=== PATIENT | female | born 1995 | race Caucasian/White ===

== ENCOUNTER 2017-03-29 00:15 | Inpatient (IN) | payer OTHER, MEDICAID ==
[~2017-03-29 00:15] MED LIST: Acetaminophen 325 MG Tab PO PRN; Carboprost Tromethamine 250 MCG/1 ML Amp IM PRN; Lactated Ringers 500 ML IV ONE; Lidocaine 1% 30 ML SDV INJECT PRN; Methylergonovine 0.2 MG/1 ML Amp IM PRN; Misoprostol 400 MCG (4 X 100 MCG TAB) RECTAL PRN; Nalbuphine 10 MG/1 ML Vial IM PRN; Sodium Chloride 0.9% 10 ML Syringe FLUSH PRN; fentaNYL 100 MCG/2 ML SDV IVPUSH PRN
[2017-03-29] MEDS ORDERED: Misoprostol 25 MCG (1/4 of 100 MCG) Tab VAG PRN (00:18)
[2017-03-29] MEDS ORDERED: Lactated Ringers 1,000 ML IV SCH (00:30)
[2017-03-29] MEDS: Lactated Ringers 1,000 ML IV SCH ×4 (00:50→16:45)
[2017-03-29] MEDS ORDERED: Oxytocin/Normal Saline 30 UNIT/500 ML BAG IV SCH (09:00)
[2017-03-29] MEDS: Nalbuphine 10 MG/1 ML Vial IM PRN ×2 (09:21→13:09)
--- NOTE | 2017-03-29 14:36 | PCM.LDHP ---
L&D History of Present Illness - General Date of Service: 03/29/17 Admit Problem/Dx: Patient Status Order with Admit Dx/Problem 03/29/17 00:14 Patient Status [ADT] Routine Admission Diagnosis/Problem Admission Diagnosis/Problem care Source of Information: Patient History Limitations: Reports: No Limitations - History of Present Illness Introduction:: 22-year-old at 41 weeks 2 days presents for induction of labor due to postdates . She has been feeling well. Baby has been active. She is having intermittent Jesus Granado contractions but nothing regular. No vaginal bleeding or discharge. No new headaches or vision changes. No other concerns today. 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: Hematologic History: Reports: Anemia - Past Surgical History HEENT Surgical History: Reports: Oral Surgery GI Surgical History: Reports: Colonoscopy, EGD Social & Family History - Family History : Reports: Renal Disease/Insufficiency - Tobacco Use Smoking Status *Q: Never Smoker Second Hand Smoke Exposure: No - Recreational Drug Use Recreational Drug Use: No H&P Review of Systems - Review of Systems: Review Of Systems: See Below General: Reports: No Symptoms HEENT: Reports: No Symptoms Pulmonary: Reports: No Symptoms Cardiovascular: Reports: No Symptoms Gastrointestinal: Reports: No Symptoms Genitourinary: Reports: No Symptoms Musculoskeletal: Reports: No Symptoms Skin: Reports: No Symptoms Psychiatric: Reports: No Symptoms Neurological: Reports: No Symptoms Hematologic/Lymphatic: Reports: No Symptoms Immunologic: Reports: No Symptoms L&D Exam - Exam Exam: See Below - Vital Signs Vital Signs: Last Vital Signs Temp 36.4 C 03/29/17 09:30 Pulse 81 03/29/17 09:30 Resp 20 03/29/17 09:30 BP 110/62 03/29/17 09:30 Pulse Ox Weight: 59.874 kg - OB Specific Contraction Duration (sec): 60-80 Contraction Frequency (min): 1-3 Contraction Intensity: Strong Heart Tones per Min: 135 Heart Rate (FHR) Variability: Moderate (6-25 bmp) Presentation: Vertex - Chan Score Chan Score Cervix Position: Posterior Chan Score Consistency: Medium Chan Score Effacement: 51-70% Chan Score Dilation: Closed Chan Score 's Station: -2 Chan Score Total: 4 - Exam General: Alert, Oriented HEENT: Conjunctiva Clear, Posterior Pharynx Clear Lungs: Clear to Auscultation, Normal Respiratory Effort Cardiovascular: Regular Rate, Regular Rhythm. No: Systolic Murmur, Diastolic Murmur Extremities: Normal Inspection. No: Edema Skin: Warm, Dry, Intact - Patient Data Lab Results last 24 hrs: Laboratory Results - last 24 hr 03/29/17 Range/Units 00:50 WBC 10.9 H (5.0-10.0) 10^3/uL RBC 3.86 L (4.2-5.4) 10^6/uL Hgb 11.1 L (12.0-16.0) g/dL Hct 32.1 L (37.0-47.0) % MCV 83.2 (80-100) fL MCH 28.8 (27.0-34.0) pg MCHC 34.6 (33.0-35.0) g/dL Plt Count 186 (150-450) 10^3/uL Result Diagrams: 03/29/17 00:50 - Problem List (1) care in third trimester SNOMED Code(s): 661494457, 07873901, 60132267, 917075520, 253319851 ICD Code: Z34.93 - ENCNTR FOR SUPRVSN OF NORMAL PREG, UNSP, THIRD TRIMESTER Status: Acute Current Visit: Yes (2) Post-dates SNOMED Code(s): 91136021 ICD Code: O48.0 - POST-TERM Status: Acute Current Visit: Yes (3) Abnormal quad screen SNOMED Code(s): 151476600, 864349429 ICD Code: O28.0 - ABNORMAL HEMATOLOG FINDING ON SCREENING OF MOTHER Status: Acute Current Visit: Yes Problem List Initiated/Reviewed/Updated: Yes Orders Last 24hrs: Active Orders 24 hr Category Date Time Status Patient Status [ADT] Routine ADT 03/29/17 00:14 Active Communication Order [RC] ASDIRECTED Care 03/29/17 00:14 Active Communication Order [RC] ASDIRECTED Care 03/29/17 00:18 Active Communication Order [RC] ASDIRECTED Care 03/29/17 00:18 Active Communication Order [RC] ASDIRECTED Care 03/29/17 00:18 Active Communication Order [RC] ASDIRECTED Care 03/29/17 00:18 Active Notify Provider Vital Signs OB [RC] ASDIRECTED Care 03/29/17 00:14 Active Notify Provider [RC] PRN Care 03/29/17 00:14 Active Notify Provider [RC] PRN Care 03/29/17 00:18 Active Notify Provider [RC] PRN Care 03/29/17 00:18 Active Notify Provider [RC] STAT Care 03/29/17 00:18 Active Peripheral IV Care [RC] 08,20 Care 03/29/17 00:19 Active Pump Management, Intrathecal [RC] ASDIRECTED Care 03/29/17 00:14 Active Up ad Danni [RC] ASDIRECTED Care 03/29/17 00:14 Active Vaginal Exam [RC] PRN Care 03/29/17 00:18 Active Vital Signs [RC] PER UNIT ROUTINE Care 03/29/17 00:14 Active Regular Diet [DIET] Diet 03/29/17 Breakfast Active Acetaminophen [Tylenol] Med 03/29/17 00:14 Active 650 mg PO Q4H PRN Carboprost Tromethamine [Hemabate DS] Med 03/29/17 00:14 Active 250 mcg IM ASDIRECTED PRN Lactated Ringers [Ringers, Lactated] 1,000 ml Med 03/29/17 00:15 Active IV ASDIRECTED Lactated Ringers [Ringers, Lactated] 1,000 ml Med 03/29/17 00:30 Active IV ASDIRECTED Lidocaine 1% [Xylocaine-MPF 1%] Med 03/29/17 00:14 Active 10 ml INJECT ASDIRECTED PRN Methylergonovine [Methergine] Med 03/29/17 00:14 Active 0.2 mg IM ASDIRECTED PRN Misoprostol [Cytotec] Med 03/29/17 00:18 Active 25 mcg VAG Q4H PRN Misoprostol [Cytotec] Med 03/29/17 00:14 Active 800 mcg RECTAL ASDIRECTED PRN Nalbuphine [Nubain] Med 03/29/17 08:56 Active 10 mg IM Q3H PRN Ondansetron [Zofran] Med 03/29/17 00:14 Active 4 mg IV Q4H PRN Oxytocin/Normal Saline [Pitocin in NS 30 UNIT/500 ML] Med 03/29/17 09:00 Active 30 unit in 500 ml IV TITRATE Sodium Chloride 0.9% [Saline Flush] Med 03/29/17 00:14 Active 10 ml FLUSH ASDIRECTED PRN fentaNYL [Sublimaze] Med 03/29/17 00:14 Active 50 mcg IVPUSH Q1H PRN Peripheral IV Insertion Adult [OM.PC] Urgent Oth 03/29/17 00:18 Ordered Saline Lock Insert [OM.PC] Routine Oth 03/29/17 00:14 Ordered Resuscitation Status Routine Resus Stat 03/29/17 00:14 Ordered Medication Orders Acetaminophen (Tylenol) 650 mg PO Q4H PRN PRN Reason: Pain (Mild 1-3) and fever Carboprost Tromethamine (Hemabate Ds) 250 mcg IM ASDIRECTED PRN PRN Reason: HEMORRHAGE Fentanyl (Sublimaze) 50 mcg IVPUSH Q1H PRN PRN Reason: Pain (moderate 4-6) Last Admin: 03/29/17 14:22 Dose: 50 mcg Lactated Ringer's (Ringers, Lactated) 1,000 mls @ 125 mls/hr IV ASDIRECTED BEN Last Admin: 03/29/17 14:24 Dose: 125 mls/hr Infusion: 03/29/17 13:18 Dose: 125 mls/hr Admin: 03/29/17 05:18 Dose: 125 mls/hr Infusion: 03/29/17 05:18 Dose: 125 mls/hr Admin: 03/29/17 00:50 Dose: 125 mls/hr Lactated Ringer's (Ringers, Lactated) 1,000 mls @ 125 mls/hr IV ASDIRECTED BEN Oxytocin/Sodium Chloride (Pitocin In Ns 30 Unit/500 Ml) 30 unit in 500 mls @ 2 mls/hr IV TITRATE BEN; 2 MUNITS/MIN PRN Reason: Protocol Lidocaine HCl (Xylocaine-Mpf 1%) 10 ml INJECT ASDIRECTED PRN PRN Reason: Perineal Repair Methylergonovine Maleate (Methergine) 0.2 mg IM ASDIRECTED PRN PRN Reason: Hemorrhage Misoprostol (Cytotec) 800 mcg RECTAL ASDIRECTED PRN PRN Reason: Hemorrhage Misoprostol (Cytotec) 25 mcg VAG Q4H PRN PRN Reason: cervical ripening Stop: 03/30/17 04:19 Last Admin: 03/29/17 01:35 Dose: 25 mcg Nalbuphine HCl (Nubain) 10 mg IM Q3H PRN PRN Reason: Pain Last Admin: 03/29/17 13:09 Dose: 10 mg Admin: 03/29/17 09:21 Dose: 10 mg Ondansetron HCl (Zofran) 4 mg IV Q4H PRN PRN Reason: Nausea/Vomiting Sodium Chloride (Saline Flush) 10 ml FLUSH ASDIRECTED PRN PRN Reason: Keep Vein Open Assessment/Plan Comment:: 22-year-old at 41 weeks 2 days for induction of labor for postdates 1. Admit to labor and delivery. 2. Initiate routine intrapartum orders. 3. 25 g Cytotec vaginally every 4 hours as needed or cervical ripening. 4. Plan for Pitocin and AROM for augmentation of labor as needed. 5. Patient is uncertain if she desires an intrathecal later in labor. 6. Expectant management. Anticipate vaginal delivery. Mikayla Nunn MD
[2017-03-29] MEDS: Ondansetron 4 MG/2 ML SDV IV PRN (16:14)
[2017-03-29] MEDS ORDERED: fentaNYL 100 MCG/2 ML SDV ONE ×2 (16:27→22:40)
--- NOTE | 2017-03-29 16:54 | PCM.PREANE ---
Preanesthetic Assessment - Procedure Proposed Procedure: Intrathecal Narcotics for Labor Pain - Anesthesia/Transfusion/Family Hx Anesthesia History: Prior Anesthesia Without Reaction Family History of Anesthesia Reaction: No Transfusion History: No Prior Transfusion(s) Intubation History: Unknown - Review of Systems General: No Symptoms Pulmonary: No Symptoms Cardiovascular: No Symptoms Gastrointestinal: No symptoms Neurological: No Symptoms Other: Reports: None - Physical Assessment NPO Status Date: 03/29/17 NPO Status Time: 14:00 Pulse: 101 O2 Sat by Pulse Oximetry: 99 Respiratory Rate: 18 Blood Pressure: 100/47 Vital Signs: Last Vital Signs Temp 36.3 C 03/29/17 12:00 Pulse 87 03/29/17 12:00 Resp 18 03/29/17 12:00 BP 115/74 03/29/17 12:00 Pulse Ox Height: 1.55 m Weight: 59.874 kg ASA Class: 2 Mental Status: Alert & Oriented x3 Dentition: Reports: Normal Dentition ROM/Head Extension: Full Lungs: Clear to auscultation, Normal respiratory effort Cardiovascular: Regular Rate, Regular Rhythm - Lab Values: Laboratory Last Values WBC 10.9 10^3/uL (5.0-10.0) H 03/29/17 00:50 RBC 3.86 10^6/uL (4.2-5.4) L 03/29/17 00:50 Hgb 11.1 g/dL (12.0-16.0) L 03/29/17 00:50 Hct 32.1 % (37.0-47.0) L 03/29/17 00:50 MCV 83.2 fL (80-100) 03/29/17 00:50 MCH 28.8 pg (27.0-34.0) 03/29/17 00:50 MCHC 34.6 g/dL (33.0-35.0) 03/29/17 00:50 Plt Count 186 10^3/uL (150-450) 03/29/17 00:50 - Allergies Allergies/Adverse Reactions: Allergies Allergy/AdvReac Type Severity Reaction Status Date / Time No Known Allergies Allergy Verified 03/29/17 01:08 - Blood Blood Available: No Product(s) Available: None - Anesthesia Plan Pre-Op Medication Ordered: None - Acknowledgements Anesthesia Type Planned: Spinal Pt an Appropriate Candidate for the Planned Anesthesia: Yes Alternatives and Risks of Anesthesia Discussed w Pt/Guardian: Yes Pt/Guardian Understands and Agrees with Anesthesia Plan: Yes Additional Comments: Chart reviewed R/B of Intrathecal Narcotics discussed with patient and accepted. 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: Hematologic History: Reports: Anemia - Past Surgical History HEENT Surgical History: Reports: Oral Surgery GI Surgical History: Reports: Colonoscopy, EGD - SUBSTANCE USE Smoking Status *Q: Never Smoker Second Hand Smoke Exposure: No Recreational Drug Use History: No - HOME MEDS Home Medications: Home Meds Vit W-Ca,Fe,FA(<1 mg) [ Vitamins] 1 each PO DAILY 03/29/17 [ History] - CURRENT (IN HOUSE) MEDS Current Meds: Current Medications Acetaminophen (Tylenol) 650 mg PO Q4H PRN PRN Reason: Pain (Mild 1-3) and fever Carboprost Tromethamine (Hemabate Ds) 250 mcg IM ASDIRECTED PRN PRN Reason: HEMORRHAGE Fentanyl (Sublimaze) 50 mcg IVPUSH Q1H PRN PRN Reason: Pain (moderate 4-6) Last Admin: 03/29/17 14:22 Dose: 50 mcg Lactated Ringer's (Ringers, Lactated) 1,000 mls @ 125 mls/hr IV ASDIRECTED BEN Last Admin: 03/29/17 14:24 Dose: 125 mls/hr Lactated Ringer's (Ringers, Lactated) 1,000 mls @ 125 mls/hr IV ASDIRECTED BEN Oxytocin/Sodium Chloride (Pitocin In Ns 30 Unit/500 Ml) 30 unit in 500 mls @ 2 mls/hr IV TITRATE BEN; 2 MUNITS/MIN PRN Reason: Protocol Lidocaine HCl (Xylocaine-Mpf 1%) 10 ml INJECT ASDIRECTED PRN PRN Reason: Perineal Repair Methylergonovine Maleate (Methergine) 0.2 mg IM ASDIRECTED PRN PRN Reason: Hemorrhage Misoprostol (Cytotec) 800 mcg RECTAL ASDIRECTED PRN PRN Reason: Hemorrhage Misoprostol (Cytotec) 25 mcg VAG Q4H PRN PRN Reason: cervical ripening Stop: 03/30/17 04:19 Last Admin: 03/29/17 01:35 Dose: 25 mcg Nalbuphine HCl (Nubain) 10 mg IM Q3H PRN PRN Reason: Pain Last Admin: 03/29/17 13:09 Dose: 10 mg Ondansetron HCl (Zofran) 4 mg IV Q4H PRN PRN Reason: Nausea/Vomiting Last Admin: 03/29/17 16:14 Dose: 4 mg Sodium Chloride (Saline Flush) 10 ml FLUSH ASDIRECTED PRN PRN Reason: Keep Vein Open Discontinued Medications Fentanyl (Sublimaze) Confirm Administered Dose 100 mcg .ROUTE .STK-MED ONE Stop: 03/29/17 16:28 Lactated Ringer's (Ringers, Lactated) 500 mls @ 999 mls/hr IV .BOLUS ONE Stop: 03/29/17 00:44 Nalbuphine HCl (Nubain) 5 mg IM Q3H PRN PRN Reason: Pain (moderate 4-6) Last Admin: 03/29/17 05:14 Dose: 5 mg Sufentanil Citrate (Sufenta) Confirm Administered Dose 50 mcg .ROUTE .STK-MED ONE Stop: 03/29/17 16:28
--- NOTE | 2017-03-29 16:56 | PCM.PRNOTE ---
- Free Text/Narrative Note: Itrathecal Narcotics procedure note. Patient ID'd R/B discussed, Chart reviewed , in sitting position sterile prep with Betadine and draped. L4-5 space ID's skin wheel with 1% lidocaine. 18 G introducer needle advanced into L4-5 inner space no blood no parasthesia, 23 G pencan needle advanced into SA space positive CSF No Blood no Parasthesia positive swirl sufentanyl 20 mcg+ Fentanyl 30 mcg+ Hyperbaric marcain 6 mg+ 1.2 ml Preservative free saline injected+ epinepherine wash into SA space. Immediate pain relief experienced by patient. BP105/67 HR94 Spinal level T8 bilateral.
--- NOTE | 2017-03-29 23:13 | PCM.PRNOTE ---
- Free Text/Narrative Note: Patient is fully dilated but in too much pain to push. Dr Nunn requested ITN with low dose muscle relaxant. Baseline VS is obtained. In left lateral position L 3-4 inner space is id'd. Skin wheel and space infiltration with 1% lidocaine. 24 G pencan spinal needle is introduced into via 18 G introducer needle into SA space. No Paresthesia, No Blood, Positive CSF. 2.5 mg Hyperbaric Marcaine, 20 mcg sufentanyl, 30 mcg fentanyl, epinepherine wash and 1 ml preservative free normal saline injected after positive swirl of CSFx2. VSS Dermatone level is T8 Bilateral and immediate labor pain relieve reported by patient BP109/56 HR 80.
[2017-03-30] MEDS ORDERED: ceFAZolin 2 GM in Premix Bag 1 BAG IV ONE (01:25)
[2017-03-30] MEDS ORDERED: Citric Acid/Sodium Citrate Solution 30 ML Cup PO ONE (01:25)
--- NOTE | 2017-03-30 01:31 | PCM.PNLD ---
Labor Progress Note - VS & Meds Vital Signs: Last Vital Signs Temp 36.6 C 03/29/17 16:50 Pulse 80 03/29/17 19:00 Resp 16 03/29/17 19:00 BP 114/72 03/29/17 19:00 Pulse Ox 100 03/29/17 18:00 Active Medications: Current Medications Acetaminophen (Tylenol) 650 mg PO Q4H PRN PRN Reason: Pain (Mild 1-3) and fever Carboprost Tromethamine (Hemabate Ds) 250 mcg IM ASDIRECTED PRN PRN Reason: HEMORRHAGE Fentanyl (Sublimaze) 50 mcg IVPUSH Q1H PRN PRN Reason: Pain (moderate 4-6) Last Admin: 03/29/17 14:22 Dose: 50 mcg Lactated Ringer's (Ringers, Lactated) 1,000 mls @ 125 mls/hr IV ASDIRECTED BEN Last Admin: 03/29/17 16:45 Dose: 125 mls/hr Lactated Ringer's (Ringers, Lactated) 1,000 mls @ 125 mls/hr IV ASDIRECTED BEN Oxytocin/Sodium Chloride (Pitocin In Ns 30 Unit/500 Ml) 30 unit in 500 mls @ 2 mls/hr IV TITRATE BEN; 2 MUNITS/MIN PRN Reason: Protocol Lidocaine HCl (Xylocaine-Mpf 1%) 10 ml INJECT ASDIRECTED PRN PRN Reason: Perineal Repair Methylergonovine Maleate (Methergine) 0.2 mg IM ASDIRECTED PRN PRN Reason: Hemorrhage Misoprostol (Cytotec) 800 mcg RECTAL ASDIRECTED PRN PRN Reason: Hemorrhage Misoprostol (Cytotec) 25 mcg VAG Q4H PRN PRN Reason: cervical ripening Stop: 03/30/17 04:19 Last Admin: 03/29/17 01:35 Dose: 25 mcg Nalbuphine HCl (Nubain) 10 mg IM Q3H PRN PRN Reason: Pain Last Admin: 03/29/17 13:09 Dose: 10 mg Ondansetron HCl (Zofran) 4 mg IV Q4H PRN PRN Reason: Nausea/Vomiting Last Admin: 03/29/17 16:14 Dose: 4 mg Sodium Chloride (Saline Flush) 10 ml FLUSH ASDIRECTED PRN PRN Reason: Keep Vein Open Discontinued Medications Fentanyl (Sublimaze) Confirm Administered Dose 100 mcg .ROUTE .STK-MED ONE Stop: 03/29/17 16:28 Fentanyl (Sublimaze) Confirm Administered Dose 100 mcg .ROUTE .STK-MED ONE Stop: 03/29/17 22:41 Lactated Ringer's (Ringers, Lactated) 500 mls @ 999 mls/hr IV .BOLUS ONE Stop: 03/29/17 00:44 Nalbuphine HCl (Nubain) 5 mg IM Q3H PRN PRN Reason: Pain (moderate 4-6) Last Admin: 03/29/17 05:14 Dose: 5 mg Sufentanil Citrate (Sufenta) Confirm Administered Dose 50 mcg .ROUTE .STK-MED ONE Stop: 03/29/17 16:28 Sufentanil Citrate (Sufenta) Confirm Administered Dose 50 mcg .ROUTE .STK-MED ONE Stop: 03/29/17 22:40 - Uterine Contractions Uterine Monitoring Mode: External [place] Contraction Frequency (min): 1-3 Contraction Duration (sec): 60-80 Contraction Intensity: Strong Uterine Resting Tone: Soft - Monitoring Heart Rate (FHR) Variability: Moderate (6-25 bmp) - Vaginal Exam Dilation (cm): 10 Effacement (Percent): 100 Station: 1 Sterile Vaginal Exam Performed By: Mikayla Nunn - Labor Progress (Free Text) Labor Progress: Patient progressed to complete dilation and pushed for 2 hours. She started to experience significant back labor, which significantly affected her ability to push. Therefore, pushing was stopped, and patient received a second intrathecal. She then pushed for another 90 minutes with slow progress. Baby was noted to be in OP position. Due to the length of pushing, the decision was made to proceed with vacuum extraction. A mushroom Kiwi was applied to the baby 's head, being careful to avoid maternal tissue. Minimal progress was noted after [address] Ash was called for assistance. There was one pop -off. About 3 minutes later, Dr. Ash arrived and attempted to extract the baby several times using both the mushroom and Mighty-Vac Kiwi vacuum. Minimal progress was noted so the decision was made to proceed with operative delivery. The risks and benefits were reviewed with the patient, and consents were signed. Will proceed to the OR JAYA. Mikayla Nunn MD
[2017-03-30] MEDS ORDERED: Midazolam 1 MG/ML 2 ML SDV ONE (01:35)
[2017-03-30] MEDS ORDERED: Morphine PF 5 MG/10 ML SDV ONE ×2 (01:36→03:26)
[2017-03-30] MEDS ORDERED: ePHEDrine 50 MG/ML SDV ONE (01:36)
[2017-03-30] MEDS ORDERED: Oxytocin/Normal Saline 60 UNIT/1,000 ML BAG ONE (01:45)
--- NOTE | 2017-03-30 03:17 | PCM.DEL ---
L & D Note - General Info Date of Service: 03/30/17 Mother's Due Date: 03/20/17 - Delivery Note Labor: augmented by ARM Cervical Ripening Method: Misoprostil Delivery Outcome: Livebirth Delivery Method: Primary Infant Delivery Mode: Vacuum Extraction (Failed) Presentation: Vertex Nuchal cord: none Anesthesia Type: Spinal, Intrathecal Amniotic Fluid Description: Meconium stained Episiotomy Type: None Laceration: none Placenta: intact, manual removal Cord: 3 vessels Estimated blood loss: 550 Resuscitation needed: Yes : suctioned, bulb syringe, stimulated, warmed, blanket used Provider: Mikayla Nunn Score 1 min: 5 Score 5 min: 8 Delivery Comments (Free Text/Narrative):: Patient delivered via primary section for failed vacuum delivery. Please see operative note for details. Mikayla Nunn MD Induction Criteria - Chan Score Chan Score Dilation: 1-2 cm Chan Score Effacement: 60-70% Chan Score 's Station: -2 Chan Score Consistency: Soft Chan Score Cervix Position: Posterior Chan Score Total: 6 Chan Score Presenting Part: Reports: Cephalic - Induction Gestational Age >/= 39 wks: Yes Medical indication: Post dates Estimated pelvis: Reports: Adequate Reassuring monitoring strip: Yes Absence of tachy systole: Yes - Augmentation Estimated Pelvis: Reports: Adequate weight estimated:: Reports: SGA Reassuring monitoring strip: Yes Absence of tachy systole: Yes Vacuum Extractor Progress Note - Alternative Labor Strategies Considered Alternative labor strategies considered:: Reports: yes Strategies considered:: Reports: Contraction intensity adequate, Position changes used to facilitate rotation & descent, Empty bladder, Rest Indications considered:: Reports: yes Indications:: Reports: Prolonged 2nd stage - Patient Prepared Patient prepared:: Reports: yes Informed consent:: Reports: Verbal Risks: Reports: yes Risks include:: Reports: Laceration, Shoulder dystocia, Maternal injury Anesthesia/analgesia adequate:: Reports: yes - Probability of Success High probability of success:: Reports: yes Patient diabetic:: Reports: no Pelvis adequate:: Reports: yes Position:: Occiput posterior Asynclitic:: Reports: yes - Application Time Type of vacuum used:: Reports: Cup: Harman type, Cup: Mushroom type Vacuum Extraction: Unsuccessful - Exit Strategy Exit strategy available:: Reports: yes and resuscitation teams readily available:: Reports: yes - Patient Data Vitals - most recent: Last Vital Signs Temp 36.6 C 03/29/17 16:50 Pulse 80 03/29/17 19:00 Resp 16 03/29/17 19:00 BP 114/72 03/29/17 19:00 Pulse Ox 100 03/29/17 18:00 Weight - most recent: 59.874 kg I&O - last 24 hours: Intake & Output 03/29/17 03/29/17 03/30/17 14:59 22:59 06:59 Intake Total 3000 Balance 3000 Lab Results last 24 hrs: Laboratory Results - last 24 hr 03/30/17 Range/Units 00:50 Blood Type O POSITIVE Gel Antibody Screen Negative Med Orders - Current: Current Medications Acetaminophen (Tylenol) 650 mg PO Q4H PRN PRN Reason: Pain (Mild 1-3) and fever Carboprost Tromethamine (Hemabate Ds) 250 mcg IM ASDIRECTED PRN PRN Reason: HEMORRHAGE Fentanyl (Sublimaze) 50 mcg IVPUSH Q1H PRN PRN Reason: Pain (moderate 4-6) Last Admin: 03/29/17 14:22 Dose: 50 mcg Lactated Ringer's (Ringers, Lactated) 1,000 mls @ 125 mls/hr IV ASDIRECTED BEN Last Admin: 03/29/17 16:45 Dose: 125 mls/hr Lactated Ringer's (Ringers, Lactated) 1,000 mls @ 125 mls/hr IV ASDIRECTED BEN Oxytocin/Sodium Chloride (Pitocin In Ns 30 Unit/500 Ml) 30 unit in 500 mls @ 2 mls/hr IV TITRATE BEN; 2 MUNITS/MIN PRN Reason: Protocol Lidocaine HCl (Xylocaine-Mpf 1%) 10 ml INJECT ASDIRECTED PRN PRN Reason: Perineal Repair Methylergonovine Maleate (Methergine) 0.2 mg IM ASDIRECTED PRN PRN Reason: Hemorrhage Misoprostol (Cytotec) 800 mcg RECTAL ASDIRECTED PRN PRN Reason: Hemorrhage Misoprostol (Cytotec) 25 mcg VAG Q4H PRN PRN Reason: cervical ripening Stop: 03/30/17 04:19 Last Admin: 03/29/17 01:35 Dose: 25 mcg Nalbuphine HCl (Nubain) 10 mg IM Q3H PRN PRN Reason: Pain Last Admin: 03/29/17 13:09 Dose: 10 mg Ondansetron HCl (Zofran) 4 mg IV Q4H PRN PRN Reason: Nausea/Vomiting Last Admin: 03/29/17 16:14 Dose: 4 mg Sodium Chloride (Saline Flush) 10 ml FLUSH ASDIRECTED PRN PRN Reason: Keep Vein Open Discontinued Medications Citric Acid/Sodium Citrate (Bicitra Solution) 30 ml PO ONETIME ONE Stop: 03/30/17 01:26 Ephedrine Sulfate (Ephedrine Sulfate) Confirm Administered Dose 50 mg .ROUTE .STK-MED ONE Stop: 03/30/17 01:37 Fentanyl (Sublimaze) Confirm Administered Dose 100 mcg .ROUTE .STK-MED ONE Stop: 03/29/17 16:28 Fentanyl (Sublimaze) Confirm Administered Dose 100 mcg .ROUTE .STK-MED ONE Stop: 03/29/17 22:41 Lactated Ringer's (Ringers, Lactated) 500 mls @ 999 mls/hr IV .BOLUS ONE Stop: 03/29/17 00:44 Cefazolin Sodium/Dextrose 2 gm (/ Premix) 50 mls @ 100 mls/hr IV ONETIME ONE Stop: 03/30/17 01:54 Last Admin: 03/30/17 02:33 Dose: 100 mls/hr Oxytocin/Sodium Chloride (Pitocin In Ns 30 Unit/500 Ml) Confirm Administered Dose 60 unit in 1,000 mls @ as directed .ROUTE .STK-MED ONE Stop: 03/30/17 01:46 Midazolam HCl (Versed 1 Mg/Ml) Confirm Administered Dose 2 mg .ROUTE .STK-MED ONE Stop: 03/30/17 01:36 Morphine Sulfate (Duramorph Pf) Confirm Administered Dose 5 mg .ROUTE .STK-MED ONE Stop: 03/30/17 01:37 Nalbuphine HCl (Nubain) 5 mg IM Q3H PRN PRN Reason: Pain (moderate 4-6) Last Admin: 03/29/17 05:14 Dose: 5 mg Sufentanil Citrate (Sufenta) Confirm Administered Dose 50 mcg .ROUTE .STK-MED ONE Stop: 03/29/17 16:28 Sufentanil Citrate (Sufenta) Confirm Administered Dose 50 mcg .ROUTE .[employer] ONE Stop: 03/29/17 22:40 - Problem List & Annotations (1) care in third trimester SNOMED Code(s): 939271792, 84797704, 25063892, 825318540, 135599390 Code(s): Z34.93 - ENCNTR FOR SUPRVSN OF NORMAL PREG, UNSP, THIRD TRIMESTER Status: Acute (2) Post-dates SNOMED Code(s): 80482345 Code(s): O48.0 - POST-TERM Status: Acute (3) Abnormal quad screen SNOMED Code(s): 554109477, 337589765 Code(s): O28.0 - ABNORMAL HEMATOLOG FINDING ON SCREENING OF MOTHER Status: Acute (4) delivery delivered SNOMED Code(s): 721001882 Code(s): O82 - ENCOUNTER FOR DELIVERY WITHOUT INDICATION Status: Acute (5) Failed vacuum extraction, delivered, current hospitalization SNOMED Code(s): 21375341 Code(s): O66.5 - ATTEMPTED APPLICATION OF VACUUM EXTRACTOR AND FORCEPS Status: Acute - Problem List Review Problem List Initiated/Reviewed/Updated: Yes - My Orders Last 24 Hours: My Active Orders 03/29/17 08:56 Nalbuphine [Nubain] 10 mg IM Q3H PRN 03/29/17 09:00 Oxytocin/Normal Saline [Pitocin in NS 30 UNIT/500 ML] 30 unit in 500 ml IV TITRATE 03/29/17 Breakfast Regular Diet [DIET] 03/30/17 01:25 Procedure Site Prep Instruct [RC] ASDIRECTED Schedule Procedure [COMM] Per Unit Routine - Assessment Assessment:: 22-year-old, now , status post primary section for failed vacuum delivery and failure of descent - Plan Plan:: 1. Admit to labor and delivery 2. Initiate routine postoperative orders. 3. Patient plans to breast-feed. Will consult on Saturday. 4. Repeat complete blood count tomorrow morning. 5. Anticipate discharge 04/02/2017 Mikayla Nunn MD
--- NOTE | 2017-03-30 03:18 | PCM.SN ---
- Free Text/Narrative Note: Section Operative Report Date of Surgery: 04/26/2017 Surgeon: Mikayla Nunn MD Manager Compliance: Jessenia Ash M.D. Pre-Operative Diagnosis: Post dates Failure of descent Failed vacuum delivery Post-Operative Diagnosis: Same Procedure Performed: Primary low transverse section Anesthesia: Spinal EBL: 550 mL IVF: 2200 mL Drains: Lennon catheter with 300 mL of urine output Specimens: None Complications: None apparent Findings: Normal uterus, tubes, and ovaries. Indication and Consent: Patient progressed to complete dilation and pushed for 4 hours, including the tendon vacuum was applied. Vacuum delivery was attempted by both myself and Dr. Ash but was unsuccessful. Therefore, the decision was made to proceed with operative delivery. The patient understood that the risks of section include, but are not limited to, visceral or vascular injury, infection, blood loss and need for blood transfusion, prolonged hospitalization, and reoperation. The patient stated understanding and desired to proceed. All questions were answered. Procedure in Detail: The patient was taken to the operating room. Lennon catheter and pneumoboots were placed. She was then prepped and draped in routine fashion in dorsal supine position with a left ely tilt. Two grams of cefazolin (Ancef) were given for infection prophylaxis. Spinal anesthesia was administered. A Pfannenstiel skin incision was made with a scalpel and carried down to the fascia. The fascia was incised and extended laterally. The rectus musculature was in the midline down to the level of the pubic symphysis. The peritoneum was found to be free of adherent bowel or bladder tissue and entered bluntly. The peritoneal opening was then extended superiorly and inferiorly to the bladder reflection with good visualization of the bladder. The Mike retractor was placed. Brief intraabdominal survey revealed scant, clear peritoneal fluid and thinned-out lower uterine segment. The bladder blade was positioned to keep the bladder out of the operative field. The lower uterine segment was incised with a scalpel. The amniotic sac was ruptured with an Allis clamp and clear fluid was noted. The uterine incision was extended bluntly with lateral and upward traction. The fetus was in vertex position. Pressure was placed on the head by the RN in the Operating Room through the vagina in order to help free the head from the pelvis. The bead was elevated out of the maternal pelvis with special attention paid to avoid using the uterine incision as a fulcrum. Gentle fundal pressure was applied once the head was brought into the incision. The was delivered with minimal difficulty. Bulb suctioning of the infant's nose and mouth was performed on the operative field. The cord was clamped and cut in standard fashion, and the was handed over to the awaiting nursery staff. IV oxytocin was initiated to facilitate uterine contractions. Cord blood was obtained. The placenta was delivered intact with manual message of the uterine fundus along with gentle cord traction. The inside of the uterus was gently wiped with a lap sponge to assure complete removal of remaining products of conception. The uterine incision was closed with 0 -Vicryl suture in a running locked fashion. A second imbricating layer of 0-Vicryl was also placed. The incision was inspected and hemostasis achieved. The ovaries and tubes were visualized and found to be normal. The uterus, tubes, and ovaries were returned to the abdominal cavity. The blood clots and fluid were wiped out of the abdomen and pelvis with moist laparotomy sponges. The uterine incision was re-inspected along with all other incised surfaces and good hemostasis was confirmed. The Mike retractor was removed. The peritoneum was then closed using 2-0 Vicyrl. The fascia was then closed with 2-0 looped PDS suture with care not to include any underlying abdominal contents. The sub-cutaneous layer was not reapproximated with plain suture. The skin was closed with 3-0 suture on a Gary needle in a subcuticular fashion. Dressing was applied. Sponge and instrument counts were reported as correct times two. Patient tolerated procedure well and was taken to PACU in stable condition. Mikayla Nunn MD
[2017-03-30] MEDS ORDERED: ePHEDrine 50 MG/ML SDV IVPUSH PRN (03:23)
[2017-03-30] MEDS ORDERED: Ibuprofen 800 MG Tab PO PRN (03:23)
[2017-03-30] MEDS ORDERED: Ondansetron 4 MG/2 ML SDV IV PRN (03:23)
[2017-03-30] MEDS ORDERED: Acetaminophen/oxyCODONE 325-5 MG Tab PO PRN (03:23)
[2017-03-30] MEDS ORDERED: diphenhydrAMINE 50 MG/ML SDV IVPUSH PRN (03:23)
[2017-03-30] MEDS ORDERED: Naloxone 2 MG/2 ML Syringe IVPUSH PRN (03:23)
[2017-03-30] MEDS ORDERED: diphenhydrAMINE 50 MG/ML SDV IV PRN (03:23)
[2017-03-30] MEDS ORDERED: fentaNYL 100 MCG/2 ML SDV ITHECAL ONE ×2 (03:26)
[2017-03-30] MEDS ORDERED: Ketorolac 30 MG/ML SDV IVPUSH ONE (03:26)
[2017-03-30] MEDS ORDERED: Midazolam 1 MG/ML 2 ML SDV IV ONE (03:26)
[2017-03-30] MEDS ORDERED: Ketorolac 30 MG/ML SDV ONE (03:28)
[2017-03-30] MEDS: Ketorolac 30 MG/ML SDV IVPUSH SCH ×3 (07:36→16:53)
[2017-03-30] MEDS: Simethicone 80 MG Tab.Chew PO PRN ×3 (08:35→22:30)
[2017-03-30] MEDS: Ondansetron 4 MG/2 ML SDV IV PRN (08:35)
[2017-03-30] MEDS: Lactated Ringers 1,000 ML IV SCH ×2 (08:38→13:38)
--- NOTE | 2017-03-30 11:18 | PCM.POSTAN ---
POST ANESTHESIA ASSESSMENT - MENTAL STATUS Mental Status: alert, oriented - VITAL SIGNS Pulse Rate: 82 SaO2: 99 Resp Rate: 18 Blood Pressure: 133/76 Temperature: 97.6 C - RESPIRATORY Respiratory Status: respiratory rate WNL, airway patent, O2 saturation stable - CARDIOVASCULAR CV Status: pulse rate WNL, blood pressure stable - GASTROINTESTINAL GI Status: no symptoms - POST OP HYDRATION Hydration Status: adequate & stable - OBSERVATIONS Free Text/Narrative:: Sitting up in bed regained sensations and movements of her lower extremities. Denies nausea or pain. Pleased with outcome. To ambulate later on today.
[2017-03-30] MEDS ORDERED: Metoclopramide 10 MG/2 ML SDV IVPUSH PRN (12:34)
[2017-03-30] MEDS ORDERED: Oxytocin/Normal Saline 30 UNIT/500 ML BAG IV ONE (13:31)
[2017-03-30] MEDS: Docusate Sodium 100 MG Cap PO PRN (22:30)
[2017-03-30] MEDS ORDERED: Ketorolac 30 MG/ML SDV IVPUSH SCH (22:30)
[2017-03-31] MEDS: Acetaminophen/oxyCODONE 325-5 MG Tab PO PRN ×4 (06:08→22:25)
[2017-03-31] MEDS: Docusate Sodium 100 MG Cap PO PRN ×2 (09:32→22:14)
[2017-03-31] MEDS: Simethicone 80 MG Tab.Chew PO PRN ×3 (09:33→18:32)
[2017-03-31] MEDS: Ibuprofen 800 MG Tab PO PRN ×2 (09:33→18:32)
--- NOTE | 2017-03-31 12:20 | PCM.PNPP ---
- General Info Date of Service: 03/31/17 Subjective Update: 22-year-old, now , POD#1 status post primary section for failed vacuum delivery at 41w3d. Patient is doing well. She is tolerating a general diet. She is ambulating without difficulty. Her blum has been removed, and she has voided twice. She complains of some abdominal pain, but it is well controlled with oral pain medication. She is , and this is going well. No concerns per patient or nursing. Functional Status: Reports: pain controlled, tolerating diet, ambulating, urinating - Review of Systems General: Reports: No Symptoms HEENT: Reports: no symptoms Pulmonary: Reports: no symptoms Cardiovascular: Reports: No Symptoms Genitourinary: Reports: no symptoms Musculoskeletal: Reports: no symptoms Skin: Reports: no symptoms - General Info Date of Service: 03/31/17 - Patient Data Vital Signs - most recent: Last Vital Signs Temp 36.8 C 03/31/17 08:00 Pulse 80 03/31/17 08:00 Resp 16 03/31/17 08:00 BP 103/56 L 03/31/17 08:00 Pulse Ox 96 03/31/17 08:00 Weight - most recent: 59.874 kg I&O - last 24 hours: Intake & Output 03/30/17 03/31/17 03/31/17 22:59 06:59 14:59 Intake Total 1900 1200 Output Total 1175 1675 Balance 725 -475 Lab Results - last 24 hrs: Laboratory Results - last 24 hr 03/31/17 Range/Units 05:50 WBC 15.0 H (5.0-10.0) 10^3/uL RBC 3.16 L (4.2-5.4) 10^6/uL Hgb 9.0 L (12.0-16.0) g/dL Hct 27.3 L (37.0-47.0) % MCV 86.4 (80-100) fL MCH 28.5 (27.0-34.0) pg MCHC 33.0 (33.0-35.0) g/dL Plt Count 159 (150-450) 10^3/uL Med Orders - Current: Current Medications Acetaminophen (Tylenol) 650 mg PO Q4H PRN PRN Reason: Pain (Mild 1-3) and fever Carboprost Tromethamine (Hemabate Ds) 250 mcg IM ASDIRECTED PRN PRN Reason: HEMORRHAGE Diphenhydramine HCl (Benadryl) 25 mg IVPUSH Q6H PRN PRN Reason: Itching or Nausea Diphenhydramine HCl (Benadryl) 25 mg IV Q4H PRN PRN Reason: Itching Docusate Sodium (Colace) 100 mg PO Q12H PRN PRN Reason: Constipation Last Admin: 03/31/17 09:32 Dose: 100 mg Ephedrine Sulfate (Ephedrine Sulfate) 5 mg IVPUSH SEECOMMENT PRN PRN Reason: Other Oxytocin/Sodium Chloride (Pitocin In Ns 30 Unit/500 Ml) 30 unit in 500 mls @ 2 mls/hr IV TITRATE BEN; 2 MUNITS/MIN PRN Reason: Protocol Last Titration: 03/30/17 05:15 Dose: 0 mls/hr Lactated Ringer's (Ringers, Lactated) 1,000 mls @ 125 mls/hr IV ASDIRECTED BEN Last Admin: 03/30/17 13:38 Dose: 125 mls/hr Ibuprofen (Motrin) 800 mg PO Q8H PRN PRN Reason: mild pain or fever Last Admin: 03/31/17 09:33 Dose: 800 mg Methylergonovine Maleate (Methergine) 0.2 mg IM ASDIRECTED PRN PRN Reason: Hemorrhage Metoclopramide HCl (Reglan) 5 mg IVPUSH Q4H PRN PRN Reason: Nausea Misoprostol (Cytotec) 800 mcg RECTAL ASDIRECTED PRN PRN Reason: Hemorrhage Nalbuphine HCl (Nubain) 10 mg IM Q3H PRN PRN Reason: Pain Last Admin: 03/29/17 13:09 Dose: 10 mg Naloxone HCl (Narcan) 0.1 mg IVPUSH SEECOMMENT PRN PRN Reason: Respiratory Depression Ondansetron HCl (Zofran) 4 mg IV Q4H PRN PRN Reason: Nausea/Vomiting Oxycodone/Acetaminophen (Percocet 325-5 Mg) 1 tab PO Q4H PRN PRN Reason: Pain (moderate 4-6) Oxycodone/Acetaminophen (Percocet 325-5 Mg) 2 tab PO Q4H PRN PRN Reason: Pain (moderate 4-6) Last Admin: 03/31/17 06:08 Dose: 2 tab Simethicone (Simethicone) 80 mg PO Q4H PRN PRN Reason: Gas Last Admin: 03/31/17 09:33 Dose: 80 mg Sodium Chloride (Saline Flush) 10 ml FLUSH ASDIRECTED PRN PRN Reason: Keep Vein Open Discontinued Medications Citric Acid/Sodium Citrate (Bicitra Solution) 30 ml PO ONETIME ONE Stop: 03/30/17 01:26 Last Admin: 03/30/17 07:36 Dose: Not Given Ephedrine Sulfate (Ephedrine Sulfate) Confirm Administered Dose 50 mg .ROUTE .STK-MED ONE Stop: 03/30/17 01:37 Fentanyl (Sublimaze) 50 mcg IVPUSH Q1H PRN PRN Reason: Pain (moderate 4-6) Last Admin: 03/29/17 14:22 Dose: 50 mcg Fentanyl (Sublimaze) Confirm Administered Dose 100 mcg .ROUTE .STK-MED ONE Stop: 03/29/17 16:28 Last Admin: 03/30/17 07:37 Dose: Not Given Fentanyl (Sublimaze) Confirm Administered Dose 100 mcg .ROUTE .STK-MED ONE Stop: 03/29/17 22:41 Last Admin: 03/30/17 07:38 Dose: Not Given Lactated Ringer's (Ringers, Lactated) 500 mls @ 999 mls/hr IV .BOLUS ONE Stop: 03/29/17 00:44 Last Admin: 03/30/17 07:37 Dose: Not Given Lactated Ringer's (Ringers, Lactated) 1,000 mls @ 125 mls/hr IV ASDIRECTED [facility] Last Admin: 03/29/17 16:45 Dose: 125 mls/hr Lactated Ringer's (Ringers, Lactated) 1,000 mls @ 125 mls/hr IV ASDIRECTED [facility] Last Admin: 03/30/17 01:25 Dose: 125 mls/hr Cefazolin Sodium/Dextrose 2 gm (/ Premix) 50 mls @ 100 mls/hr IV ONETIME ONE Stop: 03/30/17 01:54 Last Admin: 03/30/17 02:33 Dose: 100 mls/hr Oxytocin/Sodium Chloride (Pitocin In Ns 30 Unit/500 Ml) Confirm Administered Dose 60 unit in 1,000 mls @ as directed .ROUTE .STK-MED ONE Stop: 03/30/17 01:46 Ibuprofen (Motrin) 800 mg PO Q8H PRN PRN Reason: mild pain or fever Ketorolac Tromethamine (Toradol) Confirm Administered Dose 30 mg .ROUTE .STK- MED ONE Stop: 03/30/17 03:29 Ketorolac Tromethamine (Toradol) 15 mg IVPUSH Q6H [facility] Stop: 03/30/17 15:31 Last Admin: 03/30/17 16:53 Dose: 15 mg Ketorolac Tromethamine (Toradol) 15 mg IVPUSH Q6H [facility] Stop: 03/30/17 22:31 Last Admin: 03/30/17 22:30 Dose: 15 mg Lidocaine HCl (Xylocaine-Mpf 1%) 10 ml INJECT ASDIRECTED PRN PRN Reason: Perineal Repair Midazolam HCl (Versed 1 Mg/Ml) Confirm Administered Dose 2 mg .ROUTE .STK-MED ONE Stop: 03/30/17 01:36 Misoprostol (Cytotec) 25 mcg VAG Q4H PRN PRN Reason: cervical ripening Stop: 03/30/17 04:19 Last Admin: 03/29/17 01:35 Dose: 25 mcg Morphine Sulfate (Duramorph Pf) Confirm Administered Dose 5 mg .ROUTE .STK-MED ONE Stop: 03/30/17 01:37 Nalbuphine HCl (Nubain) 5 mg IM Q3H PRN PRN Reason: Pain (moderate 4-6) Last Admin: 03/29/17 05:14 Dose: 5 mg Ondansetron HCl (Zofran) 4 mg IV Q4H PRN PRN Reason: Nausea/Vomiting Last Admin: 03/30/17 08:35 Dose: 4 mg Sufentanil Citrate (Sufenta) Confirm Administered Dose 50 mcg .ROUTE .STK-MED ONE Stop: 03/29/17 16:28 Last Admin: 03/30/17 07:37 Dose: Not Given Sufentanil Citrate (Sufenta) Confirm Administered Dose 50 mcg .ROUTE .STK-MED ONE Stop: 03/29/17 22:40 Last Admin: 03/30/17 07:38 Dose: Not Given - Infant Interaction Disposition, : [place] in Room with Family Interaction: Holding Infant Infant Feeding: Breastfed Infant; Nursed Well Support Person: Significant Other - Recovery Exam Fundal Tone: Firm Fundal Level: Unable to Assess Fundal Placement: Midline Lochia Amount: Moderate Lochia Color: Rubra/Red Perineum Description: Edematous Episiotomy/Laceration: None Bladder Status: Voiding Urinary Elimination: Voided - Exam General: alert, oriented HEENT: Pupils equal Lungs: Clear to auscultation, Normal respiratory effort Cardiovascular: Regular Rate, Regular Rhythm, No Murmurs Extremities: edema (trace to lower extremties bilaterally) Skin: warm, dry, intact Wound/Incisions: dressing dry and intact - Problem List & Annotations (1) care in third trimester SNOMED Code(s): 260019817, 28148884, 16609380, 708385363, 643868953 Code(s): Z34.93 - ENCNTR FOR SUPRVSN OF NORMAL PREG, UNSP, THIRD TRIMESTER Status: Acute Current Visit: Yes (2) Post-dates SNOMED Code(s): 17523593 Code(s): O48.0 - POST-TERM Status: Acute Current Visit: Yes (3) Abnormal quad screen SNOMED Code(s): 342996990, 474450547 Code(s): O28.0 - ABNORMAL HEMATOLOG FINDING ON SCREENING OF MOTHER Status: Acute Current Visit: Yes (4) Failed vacuum extraction, delivered, current hospitalization SNOMED Code(s): 26277302 Code(s): O66.5 - ATTEMPTED APPLICATION OF VACUUM EXTRACTOR AND FORCEPS Status: Acute Current Visit: Yes (5) delivery delivered SNOMED Code(s): 669286977 Code(s): O82 - ENCOUNTER FOR DELIVERY WITHOUT INDICATION Status: Acute Current Visit: Yes - Problem List Review Problem List Initiated/Reviewed/Updated: Yes - My Orders Last 24 Hours: My Active Orders 03/30/17 12:34 Metoclopramide [Reglan] 5 mg IVPUSH Q4H PRN 03/31/17 06:30 Ibuprofen [Motrin] 800 mg PO Q8H PRN - Assessment Assessment:: 22-year-old, now , POD#1 status post primary section for failed vacuum delivery - Plan Plan:: 1. Continue routine postoperative cares 2. Continue . Will meet with operational risk consultant tomorrow. 3. Anticipate discharge 04/02/17 Mikayla Nunn MD
[2017-04-01] MEDS: Acetaminophen/oxyCODONE 325-5 MG Tab PO PRN ×5 (03:54→23:30)
[2017-04-01] MEDS: Ibuprofen 800 MG Tab PO PRN ×3 (03:56→23:30)
[2017-04-01] MEDS: Simethicone 80 MG Tab.Chew PO PRN ×3 (08:51→19:28)
[2017-04-01] MEDS: Ferrous Sulfate 325 MG Tab PO SCH (08:51)
[2017-04-01] MEDS: Docusate Sodium 100 MG Cap PO PRN (08:52)
[2017-04-02] MEDS: Acetaminophen/oxyCODONE 325-5 MG Tab PO PRN ×2 (03:29→09:25)
[2017-04-02] MEDS: Simethicone 80 MG Tab.Chew PO PRN (03:29)
--- NOTE | 2017-04-02 08:27 | PCM.DCSUM1 ---
Discharge Summary - Hospital Course Free Text/Narrative:: 22-year-old, , underwent primary section for failure to descend and failed vacuum delivery on 03/30/2017. There were no complications with delivery. She delivered a viable male infant with Apgars of 5 and 8 at one and 5 minutes respectively. - Discharge Data Discharge Date: 04/02/17 Discharge Disposition: Home, Self-Care 01 Condition: Good - Discharge Diagnosis/Problem(s) (1) care in third trimester SNOMED Code(s): 356221969, [id number], 73512661, 853523903, 854300938 ICD Code: Z34.93 - ENCNTR FOR SUPRVSN OF NORMAL PREG, UNSP, THIRD TRIMESTER Status: Acute (2) Post-dates SNOMED Code(s): 87420682 ICD Code: O48.0 - POST-TERM Status: Acute (3) Abnormal quad screen SNOMED Code(s): 990679296, 059742332 ICD Code: O28.0 - ABNORMAL HEMATOLOG FINDING ON SCREENING OF MOTHER Status: Acute (4) Failed vacuum extraction, delivered, current hospitalization SNOMED Code(s): 33726491 ICD Code: O66.5 - ATTEMPTED APPLICATION OF VACUUM EXTRACTOR AND FORCEPS Status: Acute (5) delivery delivered SNOMED Code(s): 158417114 ICD Code: O82 - ENCOUNTER FOR DELIVERY WITHOUT INDICATION Status: Acute - Patient Summary/Data Operative Procedure(s) Performed: Primary section. Failed vacuum delivery Complications: None Consults: Consultations 03/30/17 03:23 Consult to Shoe Planner [CONS] Routine Labs Pending at D/C: None Recommended Follow-up Testing/Procedures: None Planned Operative Procedure(s) after DC: None Hospital Course: Patient's postoperative course was only complicated by a mild and expected acute blood loss anemia. She was started on oral iron therapy for this. Otherwise, the remainder of her postoperative course has been uncomplicated. - Patient Instructions Diet: Usual Diet as Tolerated Activity: Apply Ice, As Tolerated, No Lifting Over 20 Pounds Driving: Do Not Drive (While taking pain medication) Showering/Bathing: May Shower Wound/Incision Care: Keep Operative Site/Wound Site Clean and Dry Notify Provider of: Fever, Increased Pain, Swelling and Redness, Drainage, Nausea and/or Vomiting - Discharge Plan Home Medications: Home Meds Vit W-Ca,Fe,FA(<1 mg) [ Vitamins] 1 each PO DAILY 03/29/17 [ History] Acetaminophen [Tylenol] 650 mg PO Q4H PRN #0 tablet 04/02/17 [Rx] Docusate Sodium [Colace] 100 mg PO Q12H PRN #0 cap 04/02/17 [Rx] Ferrous Sulfate 325 mg PO WITHBREAKFAST tablet 04/02/17 [Rx] Ibuprofen [IJD: Ibuprofen] 800 mg PO Q8H PRN #0 tablet 04/02/17 [Rx] Patient Handouts: Delivery, Care After, Home Care Instructions for Mom Referrals: Mikayla Nunn MD [Primary Care Provider] - 04/04/17 11:45 am (6-8 weeks ) - Discharge Summary/Plan Comment DC Time >30 min.: No Discharge Summary/Plan Comment: Patient discharged home today. She will follow-up with me in 6 weeks for her care. Patient was advised to follow-up with me sooner if she has any questions. Reasons to return immediately or present to the emergency department were discussed with the patient, and she voiced her understanding. All questions were answered. Mikayla Nunn MD - General Info Subjective Update: 22-year-old, now , POD#3 status post primary section for failed vacuum delivery at 41w3d. Patient is doing well. She is tolerating a general diet. She is ambulating without difficulty. She is voiding without difficulty. Pain is well controlled. She is , and this is going fairly well. No concerns per patient or nursing. Functional Status: Reports: pain controlled, tolerating diet, ambulating, urinating - Review of Systems General: Reports: No Symptoms HEENT: Reports: no symptoms Pulmonary: Reports: no symptoms Cardiovascular: Reports: No Symptoms Gastrointestinal: Reports: No symptoms Genitourinary: Reports: no symptoms Musculoskeletal: Reports: no symptoms - Patient Data Vitals - Most Recent: Last Vital Signs Temp 36.4 C 04/02/17 04:00 Pulse 69 04/02/17 04:00 Resp 16 04/02/17 04:00 BP 124/72 04/02/17 04:00 Pulse Ox 99 04/02/17 04:00 Weight - Most Recent: 59.874 kg I&O - Last 24 hours: Intake & Output 04/01/17 04/02/17 04/02/17 22:59 06:59 14:59 Intake Total 750 Balance 750 Med Orders - Current: Current Medications Acetaminophen (Tylenol) 650 mg PO Q4H PRN PRN Reason: Pain (Mild 1-3) and fever Carboprost Tromethamine (Hemabate Ds) 250 mcg IM ASDIRECTED PRN PRN Reason: HEMORRHAGE Diphenhydramine HCl (Benadryl) 25 mg IVPUSH Q6H PRN PRN Reason: Itching or Nausea Diphenhydramine HCl (Benadryl) 25 mg IV Q4H PRN PRN Reason: Itching Docusate Sodium (Colace) 100 mg PO Q12H PRN PRN Reason: Constipation Last Admin: 04/01/17 08:52 Dose: 100 mg Ephedrine Sulfate (Ephedrine Sulfate) 5 mg IVPUSH SEECOMMENT PRN PRN Reason: Other Ferrous Sulfate (Ferrous Sulfate) 325 mg PO WITHBREAKFAST BEN Last Admin: 04/01/17 08:51 Dose: 325 mg Oxytocin/Sodium Chloride (Pitocin In Ns 30 Unit/500 Ml) 30 unit in 500 mls @ 2 mls/hr IV TITRATE BEN; 2 MUNITS/MIN PRN Reason: Protocol Last Titration: 03/30/17 05:15 Dose: 0 mls/hr Lactated Ringer's (Ringers, Lactated) 1,000 mls @ 125 mls/hr IV ASDIRECTED BEN Last Admin: 03/30/17 13:38 Dose: 125 mls/hr Ibuprofen (Motrin) 800 mg PO Q8H PRN PRN Reason: mild pain or fever Last Admin: 04/01/17 23:30 Dose: 800 mg Methylergonovine Maleate (Methergine) 0.2 mg IM ASDIRECTED PRN PRN Reason: Hemorrhage Metoclopramide HCl (Reglan) 5 mg IVPUSH Q4H PRN PRN Reason: Nausea Misoprostol (Cytotec) 800 mcg RECTAL ASDIRECTED PRN PRN Reason: Hemorrhage Nalbuphine HCl (Nubain) 10 mg IM Q3H PRN PRN Reason: Pain Last Admin: 03/29/17 13:09 Dose: 10 mg Naloxone HCl (Narcan) 0.1 mg IVPUSH SEECOMMENT PRN PRN Reason: Respiratory Depression Ondansetron HCl (Zofran) 4 mg IV Q4H PRN PRN Reason: Nausea/Vomiting Oxycodone/Acetaminophen (Percocet 325-5 Mg) 1 tab PO Q4H PRN PRN Reason: Pain (moderate 4-6) Oxycodone/Acetaminophen (Percocet 325-5 Mg) 2 tab PO Q4H PRN PRN Reason: Pain (moderate 4-6) Last Admin: 04/02/17 03:29 Dose: 2 tab Simethicone (Simethicone) 80 mg PO Q4H PRN PRN Reason: Gas Last Admin: 04/02/17 03:29 Dose: 80 mg Sodium Chloride (Saline Flush) 10 ml FLUSH ASDIRECTED PRN PRN Reason: Keep Vein Open Discontinued Medications Citric Acid/Sodium Citrate (Bicitra Solution) 30 ml PO ONETIME ONE Stop: 03/30/17 01:26 Last Admin: 03/30/17 07:36 Dose: Not Given Ephedrine Sulfate (Ephedrine Sulfate) Confirm Administered Dose 50 mg .ROUTE .STK-MED ONE Stop: 03/30/17 01:37 Fentanyl (Sublimaze) 50 mcg IVPUSH Q1H PRN PRN Reason: Pain (moderate 4-6) Last Admin: 03/29/17 14:22 Dose: 50 mcg Fentanyl (Sublimaze) Confirm Administered Dose 100 mcg .ROUTE .STK-MED ONE Stop: 03/29/17 16:28 Last Admin: 03/30/17 07:37 Dose: Not Given Fentanyl (Sublimaze) Confirm Administered Dose 100 mcg .ROUTE .STK-MED ONE Stop: 03/29/17 22:41 Last Admin: 03/30/17 07:38 Dose: Not Given Fentanyl (Sublimaze) 30 mcg ITHECAL .STK-MED ONE Stop: 03/30/17 03:27 Fentanyl (Sublimaze) 30 mcg ITHECAL .STK-MED ONE Stop: 03/30/17 03:27 Lactated Ringer's (Ringers, Lactated) 500 mls @ 999 mls/hr IV .BOLUS ONE Stop: 03/29/17 00:44 Last Admin: 03/30/17 07:37 Dose: Not Given Lactated Ringer's (Ringers, Lactated) 1,000 mls @ 125 mls/hr IV ASDIRECTED [facility] Last Admin: 03/29/17 16:45 Dose: 125 mls/hr Lactated Ringer's (Ringers, Lactated) 1,000 mls @ 125 mls/hr IV ASDIRECTED [facility] Last Admin: 03/30/17 01:25 Dose: 125 mls/hr Cefazolin Sodium/Dextrose 2 gm (/ Premix) 50 mls @ 100 mls/hr IV ONETIME ONE Stop: 03/30/17 01:54 Last Admin: 03/30/17 02:33 Dose: 100 mls/hr Oxytocin/Sodium Chloride (Pitocin In Ns 30 Unit/500 Ml) Confirm Administered Dose 60 unit in 1,000 mls @ as directed .ROUTE .STK-MED ONE Stop: 03/30/17 01:46 Oxytocin/Sodium Chloride (Pitocin In Ns 30 Unit/500 Ml) 30 unit in 500 mls @ as directed IV .STK-MED ONE Stop: 03/30/17 13:32 Ibuprofen (Motrin) 800 mg PO Q8H PRN PRN Reason: mild pain or fever Ketorolac Tromethamine (Toradol) Confirm Administered Dose 30 mg .ROUTE .STK- MED ONE Stop: 03/30/17 03:29 Ketorolac Tromethamine (Toradol) 15 mg IVPUSH Q6H [facility] Stop: 03/30/17 15:31 Last Admin: 03/30/17 16:53 Dose: 15 mg Ketorolac Tromethamine (Toradol) 15 mg IVPUSH Q6H [facility] Stop: 03/30/17 22:31 Last Admin: 03/30/17 22:30 Dose: 15 mg Ketorolac Tromethamine (Toradol) 30 mg IVPUSH .STK-MED ONE Stop: 03/30/17 03:27 Lidocaine HCl (Xylocaine-Mpf 1%) 10 ml INJECT ASDIRECTED PRN PRN Reason: Perineal Repair Midazolam HCl (Versed 1 Mg/Ml) Confirm Administered Dose 2 mg .ROUTE .STK-MED ONE Stop: 03/30/17 01:36 Midazolam HCl (Versed 1 Mg/Ml) 2 mg IV .STK-MED ONE Stop: 03/30/17 03:27 Misoprostol (Cytotec) 25 mcg VAG Q4H PRN PRN Reason: cervical ripening Stop: 03/30/17 04:19 Last Admin: 03/29/17 01:35 Dose: 25 mcg Morphine Sulfate (Duramorph Pf) Confirm Administered Dose 5 mg .ROUTE .STK-MED ONE Stop: 03/30/17 01:37 Morphine Sulfate (Duramorph Pf) 0.25 mg .XX .STK-MED ONE Stop: 03/30/17 03:27 Nalbuphine HCl (Nubain) 5 mg IM Q3H PRN PRN Reason: Pain (moderate 4-6) Last Admin: 03/29/17 05:14 Dose: 5 mg Ondansetron HCl (Zofran) 4 mg IV Q4H PRN PRN Reason: Nausea/Vomiting Last Admin: 03/30/17 08:35 Dose: 4 mg Sufentanil Citrate (Sufenta) Confirm Administered Dose 50 mcg .ROUTE .STK-MED ONE Stop: 03/29/17 16:28 Last Admin: 03/30/17 07:37 Dose: Not Given Sufentanil Citrate (Sufenta) Confirm Administered Dose 50 mcg .ROUTE .STK-MED ONE Stop: 03/29/17 22:40 Last Admin: 03/30/17 07:38 Dose: Not Given Sufentanil Citrate (Sufenta) 20 mcg ITHECAL .STK-MED ONE Stop: 03/30/17 03:27 Sufentanil Citrate (Sufenta) 20 mcg ITHECAL .STK-MED ONE Stop: 03/30/17 03:27 - Exam General: Reports: alert, oriented Lungs: Reports: Clear to auscultation, Normal respiratory effort Cardiovascular: Reports: Regular Rate, Regular Rhythm, No Murmurs Extremities: Reports: edema (Trace to lower extremities bilaterally) Skin: Reports: warm, dry, intact Wound/Incisions: Reports: healing well, no drainage. Denies: erythema *Q Meaningful Use (DIS) - VTE *Q VTE Criteria *Q: - Stroke *Q Stroke Criteria *Q: - AMI *Q AMI Criteria *Q:
[2017-04-02] MEDS: Ferrous Sulfate 325 MG Tab PO SCH (09:23)
[2017-04-02] MEDS: Ibuprofen 800 MG Tab PO PRN (09:24)
[2017-04-02 14:49] VITALS: BP 128/48
--- NOTE | 2017-04-04 16:12 | PCM.PRNOTE ---
- Free Text/Narrative Note: Please see provider simple note from 03/30/2017 for operative note. Mikayla Lennon MD
== END 2017-04-02 12:49 | disposition home or self-care (01) | DRG 765 ==
LOC: DL.OBCHECK 00:15 → DL.OB 00:16 → OBSVTOIN 03-30 02:33 → DL.MS 04-01 03:15
PROVIDERS: ADMIT Family Medicine; ATTEND Family Medicine
PROC: 10D00Z1 Extraction of Products of Conception, Low, Open Approach (ICD-10-PCS; principal; 2017-03-30)
PROC: 3E0P7GC Introduction of Other Therapeutic Substance into Female Reproductive, Via Natural or Artificial Opening (ICD-10-PCS; 2017-03-30)
DX: O48.0 Post-term pregnancy (principal); D62 Acute posthemorrhagic anemia; O90.81 Anemia of the puerperium; Z3A.41 41 weeks gestation of pregnancy; Z37.0 Single live birth; O66.5 Attempted application of vacuum extractor and forceps; O28.0 Abnormal hematological finding on antenatal screening of mother
CPT/HCPCS: 01961; 01967; 36415; 51702; 85027; 86850; 86900; 86901; A9270-GY; J0690; J1885; J2250; J2274; J2300; J2405; J2590; J3010; J7120

== ENCOUNTER 2017-12-02 17:38 | Emergency (ER) | payer BC, MEDICAID, OTHER ==
[2017-12-02 18:34] VITALS: BP 114/67
[2017-12-02] MEDS ORDERED: Oseltamivir 75 MG Cap PO ONE (19:40)
--- NOTE | 2017-12-02 19:45 | EDM.PDOC ---
ED HPI GENERAL MEDICAL PROBLEM - General Chief Complaint: Genitourinary Problem Stated Complaint: SEVERE BACK PAIN/CHILLS [id number] Time Seen by Provider: 12/02/17 18:30 Source of Information: Reports: Patient History Limitations: Reports: No Limitations - History of Present Illness INITIAL COMMENTS - FREE TEXT/NARRATIVE: This 22 yo female patient reports to the ED with increased back pain, a fever and decreased appetite over the past 24 hours. The patient reports her son has also been diagnosed with Influenza and is currently on Tamiflu. Onset Date: 12/01/17 Duration: Constant, Getting Worse Location: Reports: Back, Generalized Quality: Reports: Ache, Dull Severity: Moderate Improves with: Reports: None Worsens with: Reports: None Context: Reports: Other Associated Symptoms: Reports: Fever/Chills, Loss of Appetite Bilateral Lower Back Pain Score (Numeric/FACES): 8 - Related Data Allergies Allergy/AdvReac Type Severity Reaction Status Date / Time No Known Allergies Allergy Verified 12/02/17 18:00 Home Meds: Home Meds . [No Known Home Meds] 12/02/17 [History] Past Medical History - Past Health History Medical/Surgical History: Denies Medical/Surgical History Respiratory History: Reports: Asthma Genitourinary History: Reports: UTI, Recurrent PU[employer] History: Reports: Hematologic History: Reports: Anemia - Past Surgical History HEENT Surgical History: Reports: Oral Surgery GI Surgical History: Reports: Colonoscopy, EGD Social & Family History - Family History : Reports: Renal Disease/Insufficiency - Tobacco Use Smoking Status *Q: Never Smoker Second Hand Smoke Exposure: No - Caffeine Use Caffeine Use: Reports: None - Recreational Drug Use Recreational Drug Use: No ED ROS GENERAL - Review of Systems Review Of Systems: ROS reveals no pertinent complaints other than HPI. ED EXAM, GI/ABD - Physical Exam Exam: See Below Exam Limited By: No Limitations General Appearance: Alert, WD/WN, Mild Distress Eyes: Bilateral: Normal Appearance, EOMI Ears: Normal External Exam, Normal Canal, Hearing Grossly Normal, Normal TMs Nose: Normal Inspection, Normal Mucosa, No Blood Throat/Mouth: Normal Inspection, Normal Lips, Normal Teeth, Normal Gums, Normal Oropharynx, Normal Voice, No Airway Compromise Head: Atraumatic, Normocephalic Neck: Normal Inspection, Supple, Non-Tender, Full Range of Motion Respiratory/Chest: No Respiratory Distress, Lungs Clear, Normal Breath Sounds, No Accessory Muscle Use, Chest Non-Tender Cardiovascular: Normal Peripheral Pulses, Regular Rate, Rhythm (Female) Exam: Deferred Rectal (Female) Exam: Deferred Back Exam: Paraspinal Tenderness Extremities: Normal Inspection, Normal Range of Motion, Non-Tender, Normal Capillary Refill, No Pedal Edema Neurological: Alert, Oriented, CN II-XII Intact, Normal Cognition, Normal Gait, Normal Reflexes, No Motor/Sensory Deficits Psychiatric: Normal Affect, Normal Mood Skin Exam: Warm, Dry, Intact, Normal Color, No Rash Lymphatic: No Adenopathy Course - Vital Signs Last Recorded V/S: Last Vital Signs Temp 37.4 C 12/02/17 18:33 Pulse 94 12/02/17 18:33 Resp 16 12/02/17 18:33 BP 114/67 12/02/17 18:33 Pulse Ox 100 12/02/17 18:33 - Orders/Labs/Meds Labs: Laboratory Tests 12/02/17 Range/Units 17:55 Urine Color Light yellow (YELLOW) Urine Appearance Slightly cloudy (CLEAR) Urine pH 5.5 (5.0-9.0) Ur Specific [place] 1.010 (1.005-1.030) Urine Protein Negative (NEGATIVE) Urine Glucose (UA) Negative (NEGATIVE) Urine Ketones Negative (NEGATIVE) Urine Occult Blood Negative (NEGATIVE) Urine Nitrite Negative (NEGATIVE) Urine Bilirubin Negative (NEGATIVE) Urine Urobilinogen 0.2 (0.2-1.0) mg/dL Ur Leukocyte Esterase Trace H (NEGATIVE) Urine RBC 0-5 /HPF Urine WBC 0-5 (0-5/HPF) /HPF Ur Epithelial Cells Few /HPF Urine Bacteria Rare (0-FEW/HPF) /HPF Urine Mucus Few H /LPF Meds: Medications Discontinued Medications Generic Name Dose Route Start Last Admin Trade Name Freq PRN Reason Stop Dose Admin Oseltamivir Phosphate 75 mg 12/02/17 19:40 12/02/17 19:44 Tamiflu PO 12/02/17 19:41 75 mg ONETIME ONE Administration Departure - Departure Time of Disposition: 19:42 Disposition: Home, Self-Care 01 Condition: Fair Clinical Impression: Influenza A - Discharge Information Instructions: Influenza, Adult, [id number] Forms: ED Department Discharge Care Plan Goals: The patient was advised of the examination and lab results during the visit. The patient was given an oral dose of Tamiflu while in the ED. The patient was discharged with a script for Tamiflu (75 mg) #9 to take 1 by mouth 2 times per day until gone. The patient should take Tylenol or ibuprofen as directed for temporary symptom relief. If the patient has any additional symptoms or concerns , the patient should follow-up with her primary care facility or return to the emergency department.
== END 2017-12-02 18:30 | disposition home or self-care (01) ==
LOC: DL.ED 17:38
DX: J10.1 Influenza due to other identified influenza virus with other respiratory manifestations (principal)
CPT/HCPCS: 81001; 87804; 99283; A9270